=== PATIENT | female | born 2005 | race African-American/Black ===

== ENCOUNTER 2024-08-16 18:16 | Emergency (ER) | payer MEDICAID ==
[~2024-08-16] VITALS: Ht 172.7 cm; Wt 61.0 kg
[2024-08-16 18:21] VITALS: TEMP 36.7; O2SAT 99
[2024-08-16] MEDS: CEFTRIAXONE SODIUM 500MG VIAL IM ONE (19:06)
[2024-08-16] MEDS ORDERED: DOXY-461 MT (19:25)
[2024-08-16] MEDS ORDERED: IBUP-2029 MT (19:25)
[2024-08-16 19:47] VITALS: BP 127/68; PULSE 100; RESP 20; O2SAT 100
== END 2024-08-16 19:52 | disposition home or self-care (01) ==
LOC: ER 18:16
DX: J02.9 Acute pharyngitis, unspecified (principal); Z11.3 Encounter for screening for infections with a predominantly sexual mode of transmission; Z20.2 Contact with and (suspected) exposure to infections with a predominantly sexual mode of transmission
CPT/HCPCS: 99283; 81025; 87430; 87070; 96372; J0696